=== PATIENT | male | born 1965 | race Caucasian/White ===

== ENCOUNTER 2016-03-22 09:06 | Emergency (ER) | payer MEDICARE, OTHER ==
[2016-03-22 09:24] VITALS: BP 166/91
[2016-03-22 09:38] LABS: Hematocrit 42.7 % (42.0-52.0); Hemoglobin 14.4 gm/dL (13.5-18.0); Mean Cell Volume 93.6 fl (78-100); Mean Corpuscular Hemoglobin 31.6 pg (27-31); Mean Corpuscular Hgb Conc 33.7 g/dl (32-36); Neutrophil % 61.3 % (42-75.0); Platelet Count 277 K/mm3 (150-450); Red Blood Count 4.56 M/mm3 (4.7-6.0); Red Cell Distribution Width 11.6 % (11.5-14.0); White Blood Count 8.1 K/mm3 (4.0-10.5)
[2016-03-22] MEDS ORDERED: HYDROmorphone HCL 1 MG/ML DISP.SYRIN IV ONE (09:47)
[2016-03-22] MEDS ORDERED: HYDROmorphone HCL 1 MG/ML DISP.SYRIN ONE (09:50)
[2016-03-22 09:52] LABS: Albumin * 3.8 gm/dl (3.4-5.0); Anion Gap 9.4 mmol/L (6.8-13.8); BUN/Creatinine Ratio 7.8 (9.0-21.6); Bilirubin, Total 0.4 mg/dL (0.0-1.1); Ca. Corrected For Albumin 8.6 mg/dL (8.4-10.2); Calcium * 8.8 mg/dL (7.9-10.9); Carbon Dioxide 29.6 mmol/L (24-32.6)
[2016-03-22 10:45] LABS: Urine Bilirubin Negative (NEGATIVE); Urine Blood Negative /ul (NEGATIVE); Urine Ketone Negative (NEGATIVE); Urine Nitrite Negative (NEGATIVE); Urine Protein 15 mg/dL (NEGATIVE); Urine Specific Gravity >=1.030 SP.GR. (1.005-1.030); Urine Urobilinogen Normal (NORMAL); Urine pH 5.5 pH (5.0-7.0)
[2016-03-22 10:53] LABS: Urine Appearance Clear; Urine Bacteria None Seen; Urine Color Yellow; Urine RBC None Seen /hpf (0-5); Urine WBC None Seen /hpf (0-5)
--- NOTE | 2016-03-22 11:08 | ERNOTE ---
Abdominal HPI - Narrative Date of Service: 03/22/16 - General Chief Complaint: Abdominal Pain Time Seen by Provider: 03/22/16 09:42 Source: patient Exam Limitations: no limitations - Immun/Allergies/Home Medications Immunizatons: IMMUNIZATION HX Immunizations Up to Date Yes History of Influenza Vaccine Yes Hx Pneumococcal Vaccination No Allergies/Adverse Reactions: Allergies Penicillins Allergy (Intermediate, Verified 03/22/16 09:24) Hives Home Medications: HOME MEDICATIONS Lipase/Protease/Amylase [Itzel Lama 6,000 Units Capsule] 3 each PO TID 08/31/14 [ Last Taken Unknown] Lisinopril [Zestril] 40 mg PO DAILY 08/31/14 [Last Taken Unknown] Metoprolol Tartrate [Lopressor] 50 mg PO BID 08/31/14 [Last Taken Unknown] Omeprazole [Prilosec] 40 mg PO DAILY 08/31/14 [Last Taken Unknown] Aspirin 81 mg PO DAILY 07/14/15 [Last Taken Unknown] Acetaminophen 325 mg PO Q4H PRN #30 07/15/15 [Last Taken Unknown] Glimepiride [Amaryl] 4 mg PO QAM #60 tablet 07/15/15 [Last Taken Unknown] - History of Present Illness Narrative: Patient developed right mid and upper 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 He relates he has had this before but hasn't had it in a while. No vomiting. normal bowel movements. HGad CT 2 weeks ago without cancer recurrence by report. No CP or SOB. He states the pain was severe initially but now 50-%improved spontaneously. No CP or SOB. No recent illness. No urinary Sx. No radiation of the pain. Timing: constant Quality: severe Activities at Onset: none Modifying Factors - (Improves): Present: lying down Modifying Factors - (Worsens): Present: other - none Associated Symptoms: Absent: back pain, chest pain, fever/chills, nausea, vomiting, shortness of breath, swelling/mass in abdomen Prior Treatment: Present: other - CT 2 weeks ago. Review of Systems - Review of Systems Constitutional: Absent: fever ENT: Present: no symptoms reported Respiratory: Absent: shortness of breath Cardiology: Absent: chest pain Gastrointestinal/Abdominal: Present: See HPI Genitourinary: Absent: dysuria Musculoskeletal: Present: no symptoms reported Skin: Absent: rash Neurological: Absent: weakness - Patient's Past Medical History Patient History - Medical: Diabetes Type 2, GERD, Renal Disease Patient History - Cardiac/Respiratory: Hypertension, Myocardial Infarction, TIA Patient History - Cancer: Pancreatic Patient History - Surgical Procedures: Cholecystectomy, Cardiac stent, Other Patient History - Other: None - Family History Mother Family History - Medical: Diabetes Type 1 Family History - Cardiac/Respiratory: COPD, Hypertension Father Family History - Cardiac/Respiratory: Coronary Heart Disease, Hyperlipidemia - Social History Living Situations: home Smoking Status: Current every day smoker Have you smoked in the past 12 months: Yes Alcohol Use: none Drug Use: none - Immunizations Immunizations Up to Date: Yes Hx Pneumococcal Vaccination: No History of Influenza Vaccine: Yes Physical Exam - Physical Exam General Appearance: Present: alert, no apparent distress Eye Exam: Normal inspection: bilateral, PERRL: bilateral Ears, Nose, Throat: Present: normal ENT inspection Neck: Present: normal inspection Respiratory: Present: no respiratory distress, normal breath sounds, no accessory muscle use, lungs clear Cardiovascular/Chest: Present: regular rate, rhythm Gastrointestinal/Abdominal: Present: normal bowel sounds, nondistended, soft, no organomegaly, other - Mild right upper abdominal tendenress. Palpation completely reproduces his symptoms. No peritoneal signs. Non-surgical abdomen.. Absent: guarding, rebound, McBurney sign Back Exam: Absent: CVA tenderness (R), CVA tenderness (L) Extremity Exam: Present: normal inspection Neurological Exam: Absent: motor weakness Skin Exam: Absent: skin rash ED Progress - Results and Orders Patient's Lab Results:: I have reviewed the patient's lab results. - Vital Signs Patient's Vital Signs:: I have reviewed the patient's vital signs. Vital Signs: Vital Signs 03/22/16 09:21 Temperature 36.0 C L Pulse Rate 51 L Respiratory 14 Rate Blood Pressure 166/91 O2 Sat by Pulse 100 Oximetry - Progress/Reassessment Chief Complaint: Abdominal Pain Progress:: Improved Progress Note-Subjective: 03/22/16 11:04 At 1100 he felt Sx resolved. Abd non-tender. Given his history I disucssed CT scan with him but he declines this. He understands risks and benefits but declines CT. He wishes to go home. I discussed warning signs and reasons to return as well as the need for close f/u. Departure - Departure Clinical Impression: Abdominal pain Disposition: Home self-care Instructions: Abdominal Pain, Adult, [id number] Additional Instructions: Rest. FLuids. Follow-up with primary doctor within 48 hours for a re-check. Return if you change your mind about having the CT scan I discussed with you, if you develop fever, vomiting, increased pain or if your condition worsens or changes in any way. Referrals: Maria E French MD [Primary Care Provider] -
== END 2016-03-22 11:20 | disposition home or self-care (01) ==
LOC: ER 09:06
DX: R10.11 Right upper quadrant pain (principal); F17.210 Nicotine dependence, cigarettes, uncomplicated